=== PATIENT | female | born 1995 | race Caucasian/White ===

== ENCOUNTER 2020-06-16 11:50 | Emergency (ER) | payer OTHER ==
[2020-06-16 11:57] VITALS: BP 133/71
--- NOTE | 2020-06-16 12:17 | ER Document Report ---
ED General - General Chief Complaint: Knee Pain Stated Complaint: KNEE INJURY - HPI Notes: Chief Complaint: Left knee pain Historian: History obtained from patient HPI: This is a 24-year-old female presents to the ER complaint of left knee pain since last night. Patient she was at [employer] when people came down on her causing her to fall and likely have a twisting injury to that knee. Patient is able to bear weight with pain. Majority of pain is to the anterior superior knee. No prior knee surgeries. Denies radiation of pain. ROS: Constitutional: no fevers. HEENT: no TORRES, sore throat, or vision changes. CV: no chest pain or palpitations. Resp: no cough or SOB. GI: no abdominal pain, or n/v/d. : no dysuria, hematuria, or incont. MSK: Left knee pain Skin: no rashes or itching. Neuro: no seizures, weakness, numbness, or confusion. Hematological: no ecchymosis or easy bleeding. Endocrine: no polyuria/polydipsia, no heat/cold intolerance. Psych: no SI/HI, AH/VH or memory loss. PMHx: Reviewed and agree as charted by RN. PSHx: Reviewed and agree as charted by RN. SOCHx: Reviewed and agree as charted by RN. FHX: No significant familial comorbid conditions directly related to patient complaint Current Medications: Reviewed and agree with the patient medications as charted by the RN. Allergies: Reviewed and agree with the listed allergies as charted by the RN Physical Exam: Vitals: Reviewed in chart as documented by RN. General: Alert and in NAD. Head: Normocephalic; atraumatic Eyes: PERRLA, Conjunctivae clear sclerae non-icteric bilat ENT: no soft palate swelling or uvular deviation Neck: trachea midline, no unilateral swelling/tenderness/lymphadenopathy CV: RRR, no M/R/G; symmetric distal pulses Resp: respirations even and unlabored, CTA bilat. GI: abd soft and nondistended. NTTP. normal BS. no masses/HSM. no CVAT bilat MSK: left knee- mild diffuse anterior swelling. no deformity. no erythema or open wounds. tender to superior knee. SLR intact. mild dec in rom of knee due to pain but able to flex/extend knee. no laxity w/ varus/valgus stress. neg ant/post drawer. pedal pulse 2+ cap refill <3 sec sensory intact distally. from of hip, ankle, toes. Skin: warm, moist, good turgor. no rash/lesions Neuro: Alert and oriented X 4. following CN 2-12 intact. no unilateral weakness/numbness Psych: No SI/HI or AH/VH. ED Results: Medical Decision-Making: Medical Decision-making/Differential Diagnosis: Consider various etiologies including but not limited to skin/soft tissue structure injury, MSK injury, strain/sprain, fracture, dislocation, bursitis, tendonitis, contusion, ect Plan- XR knee. suspect knee sprain. will treat w/ sean wrap, RICE, prn crutches, nsaids/tylenol. ortho referral given for f/u if symptoms not improved in the next week. return factors discussed. This course of action was discussed with the patient and/or family. They were amenable to this, verbalized understanding, and were without further questions. - Related Data Allergies/Adverse Reactions: No Known Allergies Allergy (Unverified 06/16/20 12:08) Past Medical History - Social History Smoking Status: Never Smoker Chew tobacco use (# tins/day): No Frequency of alcohol use: None Drug Abuse: None Family History: Reviewed & Not Pertinent Physical Exam - Vital signs Vitals: Temp Pulse Resp BP Pulse Ox 98.6 F 107 H 18 133/71 H 98 06/16/20 11:55 06/16/20 11:55 06/16/20 11:55 06/16/20 11:55 06/16/20 11:55 Course - Re-evaluation Re-evalutation: 06/16/20 13:07 reviewed knee imaging- no acute findings. pending official read. plan to treat as knee sprain w/ rice, tylenol/motrin, and prn crutches. ortho referral given. return factors discussed. - Vital Signs Vital signs: Temp Pulse Resp BP Pulse Ox 98.6 F 107 H 18 133/71 H 98 06/16/20 11:55 06/16/20 11:55 06/16/20 11:55 06/16/20 11:55 06/16/20 11:55 - Laboratory Results Critical Laboratory Results Reviewed: No Critical Results - Radiology Results Critical Radiology Results Reviewed: No Critical Results Discharge - Discharge Clinical Impression: Left knee pain Qualifiers: Chronicity: acute Qualified Code(s): M25.562 - Pain in left knee Condition: Stable Disposition: HOME, SELF-CARE Instructions: Sprained Knee ([facility]) Additional Instructions: rest, ice, and elevate knee. weight bearing as tolerated. tylenol and motrin for pain. call to schedule orthopedic appointment to be seen next week if your symptoms have not greatly improved or resolved. return to the ER if your c ondition worsens. Prescriptions: Ibuprofen [Motrin 600 Mg Tablet] 600 mg PO Q8HP PRN #15 tablet PRN Reason: Referrals: RUBY OLIVA JR, DO [ACTIVE [employer]ISIONAL [employer]FF] - Follow up as needed
--- NOTE | 2020-06-16 13:16 | RADIOLOGY REPORT (SQ) ---
EXAM DESCRIPTION: KNEE LEFT 4 VIEW IMAGES COMPLETED DATE/TIME: 06/16/2020 12:48 pm REASON FOR STUDY: fall, knee pain COMPARISON: None. NUMBER OF VIEWS: Four views. TECHNIQUE: AP, lateral, and both oblique radiographic images acquired of the left knee. LIMITATIONS: None. FINDINGS: MINERALIZATION: Normal. BONES: No acute fracture or dislocation. No worrisome bone lesions. JOINT: No effusion. SOFT TISSUES: No soft tissue swelling. No radio-opaque foreign body. OTHER: No other significant finding. IMPRESSION: NEGATIVE STUDY OF THE LEFT KNEE. NO RADIOGRAPHIC EVIDENCE OF ACUTE INJURY. TECHNICAL DOCUMENTATION: JOB ID: [id number] 2010 [email or web address] All Rights Reserved Reading location - IP/workstation name: [email or web address]
== END 2020-06-16 14:26 | disposition home or self-care (01) ==
LOC: ER 11:50
DX: M25.562 Pain in left knee (principal); X50.1XXA Overexertion from prolonged static or awkward postures, initial encounter
CPT/HCPCS: 99283